=== PATIENT | male | born 1990 | race Caucasian/White ===

== ENCOUNTER 2023-12-08 21:51 | Emergency (ER) | payer BC ==
[~2023-12-08] VITALS: Ht 177.8 cm; Wt 93.2 kg
[~2023-12-08 21:51] MED LIST: LORTAB 5/500 501 TAB PO; NO HOME MEDICATIONS
[2023-12-08 21:54] VITALS: TEMP 97.4
[2023-12-08] MEDS ORDERED: NS 1,000 ML IV ONE (22:15)
[2023-12-08] MEDS ORDERED: Morphine 4 MG/ML VIAL IV ONE (22:30)
[2023-12-08] MEDS ORDERED: Iohexol 300 - 100 ML VIAL IV ONE (22:33)
[2023-12-08] MEDS ORDERED: NS 50 ML IV SCH (22:33)
[2023-12-08 22:39] LABS: BASO % 0.3 % (0.0-2.0); EOS # 0.1 K/mm3 (0.0-0.7); EOS % 0.3 % (0.0-4.0); GRAN # 10.2 K/mm3 (1.4-6.5); GRAN % 70.3 % (42.2-75.2); HEMATOCRIT 46.2 % (42.0-52.0); HEMOGLOBIN 15.5 g/dl (13.5-18.0); LYMPH % 20.6 % (20.0-51.0); MEAN CELL VOLUME 90 fl (80.0-100.0); MEAN CORPUSCULAR HEMOGLOBIN 30 pg (27-31); MEAN CORPUSCULAR HGB CONC 34 g/dl (33.0-37.0); MEAN PLATELET VOLUME 9.6 fl (7.4-10.4); MONO # 1.2 K/mm3 (0.1-0.6); MONO % 8.2 % (1.7-9.3); PLATELET COUNT 254 K/mm3 (130-400); RED BLOOD COUNT 5.16 M/mm3 (4.20-5.60); REDCELL DISTRIBUTION WIDTH-CV 12.3 % (11.5-14.5)
[2023-12-08 22:55] LABS: BILIRUBIN,TOTAL 1.2 mg/dL (0.2-1.2); C-REACTIVE PROTEIN 8.89 mg/dL (0.00-0.50); CREATININE, serum 0.96 mg/dL (0.72-1.25); POTASSIUM 4.4 mEq/L (3.5-4.5); TOTAL PROTEIN 7.9 g/dl (6.2-8.1)
[2023-12-08] MEDS ORDERED: Ciprofloxacin 500 MG TAB PO ONE (23:15)
[2023-12-08] MEDS ORDERED: metroNIDAZOLE 250 MG TAB PO ONE (23:15)
[2023-12-08] MEDS ORDERED: FLAGYL500 MG PO (23:20)
[2023-12-08] MEDS ORDERED: CIPRO 500MG TA500 MG PO (23:20)
[2023-12-08 23:41] VITALS: BP 140/88; PULSE 85
== END 2023-12-08 23:42 | disposition home or self-care (01) ==
LOC: COL.ER 21:51
PROVIDERS: Emergency Medicine
DX: K57.32 Diverticulitis of large intestine without perforation or abscess without bleeding (principal); R73.9 Hyperglycemia, unspecified
CPT/HCPCS: J2270; J7030; Q9967